=== PATIENT | male | born 1975 | race Caucasian/White ===

== ENCOUNTER 2020-06-18 02:43 | Inpatient (IN) | payer OTHER, SELFPAY ==
[2020-06-18] MEDS ORDERED: Morphine 4 MG/ML VIAL ONE (03:40)
[2020-06-18] MEDS ORDERED: Piperacillin/Tazobactam 4.5 GM VIAL ONE (03:40)
[2020-06-18] MEDS ORDERED: Ondansetron PF 4 MG/2 ML Vial ONE ×2 (03:40→09:47)
[2020-06-18 03:45] LABS: #Basophils 0.1 thou/uL (0.0-0.2); #Eosinphils 0.2 thou/uL (0.0-0.7); #Monocytes 1.4 thou/uL (0.11-0.59); #Neutrophils 12.7 thou/uL (1.40-6.50); %Basophils 0.4 % (0.0-1.0); %Eosinophils 1.3 % (0.0-10.0); %Lymphocytes 12.1 % (21.0-51.0); %Monocytes 8.4 % (0.0-10.0); %Neutrophils 77.8 % (42.0-75.0); Mean Corpuscular HGB CONC 34.2 g/dL (32.0-36.0); Mean Corpuscular Hemoglobin 30.2 pg (27.0-31.0); Mean Corpuscular Volume 88.4 fL (78.0-98.0); Platelet Count 267 thou/uL (130-400); RBC Distribution Width 11.1 % (11.5-14.5); Red Blood Cell (RBC) Count 4.31 mill/uL (4.70-6.10); White Blood Cell (WBC) Count 16.3 thou/uL (4.8-10.8)
[2020-06-18 04:07] LABS: ALT (SGPT) 7 U/L (8-55); AST (SGOT) 12 U/L (5-34); Albumin 3.5 g/dL (3.5-5.0); Alkaline Phosphatase 91 U/L (40-110); Anion Gap 13 mmol/L (10-20); BUN (Urea Nitrogen) 9 mg/dL (8.9-20.6); Bilirubin, Total 0.6 mg/dL (0.2-1.2); Calc. Creatinine Clearance 0 mL/min (70-130); Calcium 8.6 mg/dL (7.8-10.44); Carbon Dioxide 25 mmol/L (22-29); Chloride 96 mmol/L (98-107); Estimated GFR-MDRD 79; Globulin 3.6 g/dL (2.4-3.5); Glucose 375 mg/dL (70-105); Potassium 3.3 mmol/L (3.5-5.1); Protein, Total 7.1 g/dL (6.0-8.3); Sodium 131 mmol/L (136-145)
[2020-06-18 04:29] LABS: Bilirubin Negative (Negative); Blood, Urine Negative (Negative); Clarity Clear (Clear); Glucose, Urine (Dipstick) Greater than 1000 mg/dL (Negative); Ketone, Urine 20 mg/dL (Negative); Leukocyte Negative Leu/uL (Negative); Nitrite Negative (Negative); Protein, Urine (Dipstick) Negative (Neg-Trace); Specific Gravity, Urine 1.035 (1.002-1.036); Urobilinogen Normal mg/dL (Less than 2); pH, Urine 5.5 (5.0-9.0)
[2020-06-18] MEDS ORDERED: Vancomycin 1 GM/200 ML BAG ONE (04:36)
[2020-06-18] MEDS ORDERED: Clindamycin/D5W 600 mg/50 ml Premix Bag ONE ×2 (05:26→13:14)
[2020-06-18 06:18] VITALS: BMI 31.7
[2020-06-18] MEDS ORDERED: HumaLOG 300 UNITS/3 ML VIAL SC PRN (08:04)
[2020-06-18] MEDS ORDERED: Dextrose 50% Abboject 50 ML SYRINGE SLOW IVP PRN (08:04)
[2020-06-18] MEDS ORDERED: Dextrose 5% in Water 1,000 ML IV PRN (08:04)
[2020-06-18] MEDS ORDERED: Electrolyte Replacement Protocol FS PRN (08:15)
[2020-06-18] MEDS ORDERED: Electrolyte Replacement Protoc 1 EACH EACH FS SCH (08:15)
--- NOTE | 2020-06-18 08:20 | CON ---
DATE OF CONSULTATION: 06/18/2020 CHIEF COMPLAINT: Abdominal and scrotal pain. HISTORY OF PRESENT ILLNESS: This is a 44-year-old male with a history of pain that started in his infraumbilical area, radiating down toward his penis. He developed more swelling in his right scrotum that became swollen down into his testicle area associated with no fevers, chills, or body aches. He has never had this before. He is diabetic and he has had other abscesses in the past. He admitted to the hospitalist service. I was consulted for definitive drainage. PAST MEDICAL HISTORY: Includes type 2 diabetes. PAST SURGICAL HISTORY: Cholecystectomy. MEDICATIONS: Taken daily, metformin. ALLERGIES: NO KNOWN DRUG ALLERGIES. SOCIAL HISTORY: He does not smoke, but he admits to occasional drugs and social alcohol. FAMILY HISTORY: Noncontributory to GI malignancy or anesthetic related complication. REVIEW OF SYSTEMS: Ten-system review of systems is otherwise negative unless described above. PHYSICAL EXAMINATION: VITAL SIGNS: Blood pressure is 134/82, pulse 90, respirations 18. HEENT: Sclerae are anicteric. Oropharynx is clear. NECK: No lymphadenopathy. CHEST: Clear. HEART: Regular rate. ABDOMEN: Soft. GENITOURINARY: He has swelling in the right groin, suprapubic. He has severe pain in the area. He has mild swelling going down onto the scrotum. There is no obvious scrotal abscess. ASSESSMENT: Suprapubic abscess, likely with secondary inflammatory change going into the right scrotum. PLAN: I and D later today. Risks, benefits, and alternatives discussed. He gives consent. We will do this today. Job ID: [id number]
[2020-06-18] MEDS ORDERED: Acetaminophen 325 MG TAB PO PRN (09:10)
[2020-06-18] MEDS: HYDROcodone/Acetaminophen 5/325 mg Tablet PO PRN ×2 (09:14→18:49)
[2020-06-18] MEDS ORDERED: Dextrose 5 % And 0.9 % NaCl 1,000 ML IV SCH (09:15)
[2020-06-18 09:40] LABS: Hemoglobin A1c Greater than 14.0 % (4.0-6.0)
[2020-06-18] MEDS ORDERED: PROPOFOL 200 MG/20 ML VIAL ONE (09:47)
[2020-06-18] MEDS ORDERED: Lidocaine 1% PF 5 ML VIAL ONE (09:47)
[2020-06-18] MEDS ORDERED: Metoclopramide HCl 10 MG/2 ML VIAL ONE (09:47)
--- NOTE | 2020-06-18 10:03 | HP ---
PRESENTING COMPLAINT: Scrotal pain for 7 days. HISTORY OF PRESENT ILLNESS: This is a 44-year-old male patient with a history of diabetes mellitus for the past couple of years, not on insulin, however, on metformin, presenting with a 5 to 7 day history of scrotal swelling. Pain initially started on the left side and then migrated to the right side, and a couple of days ago, he noticed significant swelling and reddening of his scrotum and extended to his lower abdomen. He denied any associated fevers, dysuria, however, admits to scrotal and penile discharge. He did not do any interventions and when things got worse, he presented to the ED for further evaluation. 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 CT scan was positive for cellulitis involving the scrotum and lower abdominal wall. Surgery was consulted. Hospitalist team was consulted for admission. PAST MEDICAL HISTORY: Diabetes mellitus. MEDICATIONS: Metformin 500 mg b.i.d. ALLERGIES: NO KNOWN DRUG ALLERGIES. PAST SURGICAL HISTORY: Cholecystectomy. FAMILY HISTORY: Diabetes in mother. SOCIAL HISTORY: He lives alone. Next of kin is mother. He does not smoke. He drinks alcohol intermittently. PHYSICAL EXAMINATION: GENERAL: The patient in bed, in no acute distress. CVS: S1, S2 present and normal. No murmurs, gallops, or rubs. LUNGS: Clear bilaterally, no rhonchi or rales. ABDOMEN: Erythematous with swelling in lower abdominal wall with grossly swollen scrotum bilaterally with severe erythema. Extremities: No edema ASSESSMENT AND PLAN: -Scrotal abscess with abdominal wall cellulitis. Currently on Zosyn, clindamycin, and vancomycin. Surgery is consulted, plan is for incision and drainage this afternoon. Continue antibiotics and monitoring. -Diabetes mellitus. We will check A1c. We will start him on q.4 glucose monitoring and 5 units glargine. Follow up A1c, close monitoring. CODE STATUS: DNAR. Job ID: [id number] MTDD
[2020-06-18] MEDS: Piperacillin/Tazobactam 3.375 GM in Sodium Chloride 0.9% 100 ML IVPB SCH ×3 (10:29→22:15)
--- NOTE | 2020-06-18 10:31 | CT ---
PRELIMINARY REPORT/[facility]/EMERGENCY AFTER HOURS PROCEDURE EXAM: CT Pelvis Without Intravenous Contrast. CLINICAL HISTORY: 44-year-old male patient presents to the ER with complaint of scrotal pain, suprapubic abdominal pain , erythema, swelling, penile pain for the last 5 to 7 days. The patient states he first noticed redness and swelling in his lower abdomen which then started to spread to his scrotum 2 days ago. Pat ient denies any fever, body aches, chills, nausea, vomiting, or other symptoms at this time. The patient reports he is a diabetic. Patient denies any history of prior similar episodes in the past. TECHNIQUE: Axial computed tomography images of the pelvis without intravenous contrast. CONTRAST: None. COMPARISON: None provided. FINDINGS: HIP JOINTS: No dislocation. The joint spaces are normal. BONES: No acute fracture or focal osseous lesion. No suspicious focal osseous lesions. SOFT TISSUES: Extensive subcutaneous induration is noted extending from the lower margin of the pannus into the sub cutaneous tissues around the penis extending into the screening with bilateral hydroceles suspected. Some confluence of the presumed inflammatory changes extending from the skin surface to t he penis anteriorly likely a developing abscess although a discrete collection is not yet identified. There is no soft tissue air. Some prominent inguinal lymph nodes bilaterally which are presumably reactive. Contents of the pelvic cavity is unremarkable. 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 Early stages of this disease process however may be developing. ELECTRONICALLY SIGNED BY: Farshad Altamirano MD Jun 18, 2020 3:57:50 AM CDT This report is intended for review by the ordering physician only, in accordance of law. If you recei ve this report in error, please call [facility] at [phone]. FINAL REPORT Final report by Dr. Thurman Emergency after-hours study CT PELVIS WITHOUT CONTRAST: HISTORY: 44-year-old male with pain and swelling of the pelvis. FINDINGS: Severe scrotal edema and large bilateral hydroceles. Severe anterior superficial soft tissue edema, plus moderately large irregularly shaped soft tissue d ensity mass anterior to the base of the penis. Bilateral inguinal lymphadenopathy, with small irregularly-shaped soft tissue density mass around lef t inguinal lymph nodes. No subcutaneous emphysema identified. Unremarkable urinary bladder. No acute pathology identified within the pelvic cavity. No gross evidence of osteomyelitis. Agree with preliminary report by [facility]. IMPRESSION: 1.) Severe edema, which could be cellulitis anterior to the base of the penis and in the surrounding anterior superficial soft tissues. 2.) moderately large phlegmon vs hematoma anterior to base of penis, and smaller phlegmon versus usha farhan adjacent to left inguinal lymphadenopathy. 3) scrotal edema and hydroceles. Transcribed Date/Time: 06/18/2020 11:37 AM
[2020-06-18] MEDS ORDERED: HYDROcodone/Acetaminophen 5/325 mg Tablet PO SCH (10:45)
[2020-06-18] MEDS ORDERED: Potassium Chloride 40 MEQ in Sodium Chloride 0.9% 250 ML 250 ML IVPB SCH (12:45)
[2020-06-18] MEDS ORDERED: Sodium Chloride 0.9% 1,000 ML IV SCH (13:00)
[2020-06-18] MEDS ORDERED: Bupivacaine/Epinephrine 0.25% 30 ML VIAL ONE (13:05)
[2020-06-18] MEDS ORDERED: Bupivacaine 0.25% HCL 30 ML VIAL ONE (13:05)
[2020-06-18] MEDS ORDERED: Fentanyl 100 MCG/2 ML VIAL ONE (13:12)
[2020-06-18] MEDS ORDERED: FLU VACC QS2020-21(6MOS UP)/PF 60 MCG/0.5 ML SYRINGE IM ONE (13:15)
[2020-06-18] MEDS ORDERED: HYDROmorphone 2 MG/ML VIAL SLOW IVP PRN (13:49)
[2020-06-18] MEDS ORDERED: Promethazine HCl 25 MG/ML VIAL IM PRN (13:49)
[2020-06-18] MEDS ORDERED: Promethazine HCl 25 MG/ML VIAL SLOW IVP PRN (13:49)
--- NOTE | 2020-06-18 14:25 | OP ---
DATE OF PROCEDURE: 06/18/2020 PREOPERATIVE DIAGNOSIS: Suprapubic and scrotal abscess. POSTOPERATIVE DIAGNOSIS: Suprapubic and scrotal abscess. PROCEDURE PERFORMED: I and D of large suprapubic abscess. ANESTHESIA: General. ESTIMATED BLOOD LOSS: Minimal. COMPLICATIONS: None. SPECIMENS: Cultures taken for anaerobes and aerobes. DESCRIPTION OF PROCEDURE: The patient was taken to the operating room and laid supine on the operating room table. After general anesthetic was obtained, suprapubic area was prepped and draped in a sterile fashion. An elliptical incision used to ellipse out the tissue on top of the abscess. All loculations were broken up and the wound was irrigated. Cultures were taken. The wound was packed using wet-to-dry saline soaked gauze. There was a second small abscess below the umbilicus that was opened as well to reveal no purulence. This did not connect. There was no connection down into the scrotum. The scrotum was edematous, but there was no necrosis, bulla formation, or crepitance. The patient was sent to Recovery in stable condition. All instrument counts, needle counts, and lap counts were correct. Job ID: [id number]
[2020-06-18] MEDS: Clindamycin/D5W 600 MG in Premix Bag 1 BAG IVPB SCH ×2 (14:56→22:52)
[2020-06-18 15:26] LABS: SARS-CoV-2 MS2 Positive; SARS-CoV-2 N Gene Negative; SARS-CoV-2 S Gene Negative; SARS-CoV-2 by NAA Not Detected (NotDetected); SARS-CoV-2 orf1ab Negative
[2020-06-19] MEDS ORDERED: HumaLOG 300 UNITS/3 ML VIAL SC PRN (00:32)
[2020-06-19] MEDS: Piperacillin/Tazobactam 3.375 GM in Sodium Chloride 0.9% 100 ML IVPB SCH ×4 (03:07→21:08)
[2020-06-19 05:51] LABS: #Basophils 0.1 thou/uL (0.0-0.2); #Eosinphils 0.4 thou/uL (0.0-0.7); #Lymphocytes 2.4 thou/uL (1.20-3.40); #Monocytes 1.2 thou/uL (0.11-0.59); #Neutrophils 9.4 thou/uL (1.40-6.50); %Basophils 0.6 % (0.0-1.0); %Eosinophils 2.9 % (0.0-10.0); %Lymphocytes 17.9 % (21.0-51.0); %Monocytes 8.7 % (0.0-10.0); Hemoglobin 11.3 g/dL (14.0-18.0); Mean Corpuscular HGB CONC 33.1 g/dL (32.0-36.0); Mean Corpuscular Hemoglobin 30.5 pg (27.0-31.0); Mean Corpuscular Volume 92.1 fL (78.0-98.0); Platelet Count 234 thou/uL (130-400); RBC Distribution Width 11.1 % (11.5-14.5); Red Blood Cell (RBC) Count 3.71 mill/uL (4.70-6.10); White Blood Cell (WBC) Count 13.4 thou/uL (4.8-10.8)
[2020-06-19 06:17] LABS: Anion Gap 12 mmol/L (10-20); BUN (Urea Nitrogen) 8 mg/dL (8.9-20.6); Calc. Creatinine Clearance 215 mL/min (70-130); Calcium 7.9 mg/dL (7.8-10.44); Carbon Dioxide 22 mmol/L (22-29); Chloride 102 mmol/L (98-107); Estimated GFR-MDRD Greater than 90; Glucose 272 mg/dL (70-105); Potassium 3.6 mmol/L (3.5-5.1); Sodium 132 mmol/L (136-145)
[2020-06-19] MEDS: Clindamycin/D5W 600 MG in Premix Bag 1 BAG IVPB SCH ×3 (06:52→22:23)
[2020-06-19] MEDS: HYDROcodone/Acetaminophen 5/325 mg Tablet PO PRN ×3 (07:14→18:20)
--- NOTE | 2020-06-19 07:45 | PDOC.GSPN ---
Surgery Progress Note: Subj - Subjective Patient reports: feels better, pain well controlled (Pt. reports mild pain and s oreness) Narrative: Patient is a 44 year old male here status post day 1 I&D of a suprapubic abcess. He is currently receiving clindamycin, vacomycin, and Zosyn. Pt. denies any concerns with the wound, fever or chills, or shortness of breath. Surgery Progress Note: Obj - Vital signs Vital signs: Vital Signs - Most Recent Temp Pulse Resp BP Pulse Ox 98.5 F 69 18 111/73 97 06/19/20 03:00 06/19/20 03:00 06/19/20 03:00 06/19/20 03:00 06/19/20 03:00 - Physical Exam General: no distress, well developed, well nourished Cardiovascular: regular rate and rhythm Respiratory: clear to auscultation, normal expansion, normal respiratory effort, breath sounds present Abdomen: soft, non tender, nondistended, positive bowel sounds Wound: drainage (dressing consisted of drainage, consisiting of some blood and pus. There was not obvious drainage flowing outside of the dressing.) Surgery Progress Note: Results - Labs Result Diagrams: 06/19/20 05:32 06/19/20 05:32 Lab results: Laboratory Results - last 12 hr 06/18/20 06/19/20 06/19/20 20:06 00:19 04:36 WBC RBC Hgb Hct MCV MCH MCHC RDW Plt Count MPV Neutrophils % Lymphocytes % Monocytes % Eosinophils % Basophils % Neutrophils # Lymphocytes # Monocytes # Eosinophils # Basophils # Sodium Potassium Chloride Carbon Dioxide Anion Gap BUN Creatinine Estimated GFR (MDRD) Glucose POC Glucose 247 H 332 H 268 H Calcium 06/19/20 06/19/20 05:32 05:32 WBC 13.4 H RBC 3.71 L Hgb 11.3 L Hct 34.1 L MCV 92.1 MCH 30.5 MCHC 33.1 RDW 11.1 L Plt Count 234 MPV 9.0 Neutrophils % 70.0 Lymphocytes % 17.9 L Monocytes % 8.7 Eosinophils % 2.9 Basophils % 0.6 Neutrophils # 9.4 H Lymphocytes # 2.4 Monocytes # 1.2 H Eosinophils # 0.4 Basophils # 0.1 Sodium 132 L Potassium 3.6 Chloride 102 Carbon Dioxide 22 Anion Gap 12 BUN 8 L Creatinine 0.70 Estimated GFR (MDRD) Greater than 90 Glucose 272 H POC Glucose Calcium 7.9 Microbiology report shows gram positive cocci in pairs and clusters. Surgery Progress Note: A/P - Problem (1) Status post incision and drainage Current Visit: Yes Code(s): Z98.890 - OTHER SPECIFIED POSTPROCEDURAL STATES Status: Acute - Plan Plan: Continue wound care and pain treatment. Continue the course of clindamycin, vancomycin, and Zosyn. Patient should also ambulate as tolerable. Addendum - Physician - Physician Attestation Date/Time: 06/19/20 8632 I personally performed or re-performed the physical examination and medical decision making. I have verified all student documentation or findings, including history, physical exam and/or medical decision making. Agree, start dressing changes today. Scrotum still edematous but no bullae, crepitance or necrosis
--- NOTE | 2020-06-19 08:25 | PDOC.HOSPP ---
- Subjective Encounter Date: 06/19/20 Encounter Time: 08:24 Subjective: Patient seen and examined. No new complaints. No overnight events. POD#1 s/p I&D suprapubic and scrotal abscess. Denies any fever or chills. denies any nausea, vomiting or diarrhea. Denies any chest pain, or SOB. - Objective Vital Signs & Weight: Vital Signs (12 hours) Temp Pulse Resp BP Pulse Ox 06/19/20 07:00 97.8 F 70 18 106/68 70 L 06/19/20 03:00 98.5 F 69 18 111/73 97 06/19/20 00:00 98.9 F 93 18 103/64 95 06/18/20 22:18 93 Weight Weight 254 lb 1.6 oz I&O: 06/18/20 06/19/20 06/20/20 06:59 06:59 06:59 Intake Total 240 Balance 240 Result Diagrams: 06/19/20 05:32 06/19/20 05:32 Additional Labs: Accuchecks 06/19/20 06/19/20 06/18/20 04:36 00:19 20:06 POC Glucose 268 H 332 H 247 H 06/18/20 06/18/20 15:50 11:47 POC Glucose 188 H 232 H Hospitalist ROS - Review of Systems Constitutional: denies: fever, chills Respiratory: denies: cough, shortness of breath Cardiovascular: denies: chest pain, palpitations Gastrointestinal: denies: nausea, vomiting, diarrhea Genitourinary: denies: dysuria, hematuria Neurological: denies: incoordination, change in speech All other systems reviewed; all pertinent +/- noted in HPI/Subj - Medication Medications: Active Medications Generic Name Dose Route Start Last Admin Trade Name Freq PRN Reason Stop Dose Admin Hydrocodone Bitart/Acetaminophen 1 tab 06/18/20 09:08 06/19/20 07:14 Hydrocodone/Acetaminophen 5/325 Mg Tablet PO 1 tab Q4H PRN Administration Mild-Moderate Pain (1-5) Piperacillin Sod/Tazobactam 100 mls @ 200 mls/hr 06/18/20 09:00 06/19/20 03:07 Sod 3.375 gm/ Sodium Chloride IVPB 100 mls 0300,0900,1500,2100 LEATHA Administration Clindamycin Phosphate/Dextrose 50 mls @ 100 mls/hr 06/18/20 14:00 06/19/20 06:52 600 mg/ Device IVPB 50 mls Q8HR LEATHA Administration Vancomycin HCl 2 gm/ Sodium 500 mls @ 250 mls/hr 06/18/20 17:00 06/19/20 04:29 Chloride IVPB 06/24/20 11:00 500 mls 0500,1700 LEATHA Administration - Exam General Appearance: NAD, awake alert Eye: anicteric sclera ENT: normocephalic atraumatic Neck: supple, symmetric Heart: RRR, no murmur, no gallops, no rubs, normal peripheral pulses Respiratory: CTAB, no wheezes, no rales, no ronchi, normal chest expansion, no tachypnea Gastrointestinal: soft, normal bowel sounds, no guarding, no rigidity Extremities: no cyanosis, no edema Skin - other findings: wound drsg to left groin area and scrotum, WCT managing. Neurological: no focal deficits Psychiatric: normal affect, A&O x 3 Hosp A/P (1) Sepsis due to Escherichia coli with acute hypoxic respiratory failure Code(s): A41.51 - SEPSIS DUE TO ESCHERICHIA COLI [E. COLI]; R65.20 - SEVERE SEPSIS WITHOUT SEPTIC SHOCK; J96.01 - ACUTE RESPIRATORY FAILURE WITH HYPOXIA Status: Acute (2) Scrotal abscess Code(s): N49.2 - INFLAMMATORY DISORDERS OF SCROTUM Status: Acute (3) Sepsis Code(s): A41.9 - SEPSIS, UNSPECIFIED ORGANISM Status: Acute (4) Cellulitis, scrotum Code(s): N49.2 - INFLAMMATORY DISORDERS OF SCROTUM Status: Acute (5) Abdominal wall cellulitis Code(s): L03.311 - CELLULITIS OF ABDOMINAL WALL Status: Acute (6) DMII (diabetes mellitus, type 2) Status: Chronic Qualifiers: Diabetes mellitus penitentiary insulin use: without penitentiary use - Plan #Sepsis d/t Ecoli with hypoxic respiratory failure VSS Blood CX negative so far. Wound CX anaerobes. WBC down 13.4, LA 1.3 POD#1 s/p I&D suprapubic and scrotal abscess by Dr. Goodson Continue Vanc, Zosyn and Clindamycin Tolerating oral intake. Wound care Consulted. #Sepsis see above. #Cellulitis Scrotum POD#1 s/p I&D suprapubic and scrotal absces. # Abdominal wall cellulitis Continue antibiotic regimen. #DMII, uncontrolled HA1C 14 Has not been taking home metformin and flozin. Tolerating oral intake. Increase lantus to 10u q am. (was 5u) Change to Mod ISS AC/HS checks. Other chronic conditions per H&P. Discussed case with Dr. Yarbrough.
[2020-06-19] MEDS ORDERED: Insulin Glargine 5 UNITS in Pre-Filled Syringe 1 EACH SC SCH (09:00)
[2020-06-19] MEDS: Insulin Glargine 10 UNITS in Pre-Filled Syringe 1 EACH SC SCH (10:09)
[2020-06-19] MEDS: Vancomycin 1.5 GRAM/300 ML BAG 1.5 GM in Premix Bag 1 BAG IVPB SCH (18:20)
[2020-06-19] MEDS: HumaLOG 300 UNITS/3 ML VIAL SC PRN ×2 (18:22→21:10)
[2020-06-19 22:12] LABS: Chlam.trachomatis by PCR,Urine Not Detected (NotDetected)
[2020-06-20] MEDS: Vancomycin 1.5 GRAM/300 ML BAG 1.5 GM in Premix Bag 1 BAG IVPB SCH ×3 (01:02→16:45)
[2020-06-20] MEDS: Piperacillin/Tazobactam 3.375 GM in Sodium Chloride 0.9% 100 ML IVPB SCH ×4 (03:04→20:33)
[2020-06-20] MEDS: Clindamycin/D5W 600 MG in Premix Bag 1 BAG IVPB SCH ×3 (06:27→22:01)
[2020-06-20] MEDS: HumaLOG 300 UNITS/3 ML VIAL SC PRN ×4 (06:30→20:35)
[2020-06-20] MEDS ORDERED: Magnesium 2 GM/50 ML 2 GM in Premix Bag 1 BAG IVPB SCH (08:00)
[2020-06-20] MEDS: Insulin Glargine 10 UNITS in Pre-Filled Syringe 1 EACH SC SCH (08:36)
[2020-06-20] MEDS ORDERED: Piperacillin/Tazobactam 3.375 GM VIAL ONE ×2 (08:41→15:00)
[2020-06-20 09:19] LABS: #Eosinphils 0.5 thou/uL (0.0-0.7); #Lymphocytes 1.6 thou/uL (1.20-3.40); #Monocytes 0.7 thou/uL (0.11-0.59); #Neutrophils 5.4 thou/uL (1.40-6.50); %Basophils 0.6 % (0.0-1.0); %Eosinophils 6.5 % (0.0-10.0); %Lymphocytes 18.9 % (21.0-51.0); %Monocytes 8.3 % (0.0-10.0); %Neutrophils 65.7 % (42.0-75.0); Hemoglobin 11.8 g/dL (14.0-18.0); Mean Corpuscular HGB CONC 32.6 g/dL (32.0-36.0); Mean Platelet Volume 8.6 fL (7.4-10.4); Platelet Count 266 thou/uL (130-400); RBC Distribution Width 11.2 % (11.5-14.5); Red Blood Cell (RBC) Count 3.93 mill/uL (4.70-6.10); White Blood Cell (WBC) Count 8.2 thou/uL (4.8-10.8)
[2020-06-20 09:39] LABS: Anion Gap 13 mmol/L (10-20); BUN (Urea Nitrogen) 5 mg/dL (8.9-20.6); Calc. Creatinine Clearance 228 mL/min (70-130); Calcium 8.6 mg/dL (7.8-10.44); Carbon Dioxide 24 mmol/L (22-29); Chloride 103 mmol/L (98-107); Estimated GFR-MDRD Greater than 90; Glucose 211 mg/dL (70-105); Potassium 4.2 mmol/L (3.5-5.1); Sodium 136 mmol/L (136-145)
--- NOTE | 2020-06-20 10:13 | PDOC.HOSPP ---
- Subjective Encounter Date: 06/20/20 Encounter Time: 10:11 Subjective: No overnight events. Pt POD#2 from scrotal abcess I&D. Pt reports he overall feels well. Pain is improving as is scrotal edema. Denies numbnes/weakness. Denies chest pain, SOB, abdominal pain. Pt examined at bedside. Chart and medications reviewed. - Objective Vital Signs & Weight: Vital Signs (12 hours) Temp Pulse Resp BP Pulse Ox 06/20/20 07:26 98.1 F 87 20 148/92 H 988 H Weight Weight 254 lb 1.6 oz I&O: 06/19/20 06/20/20 06/21/20 06:59 06:59 06:59 Intake Total 240 Balance 240 Result Diagrams: 06/20/20 08:55 06/20/20 08:55 Additional Labs: Accuchecks 06/20/20 06/19/20 06/19/20 04:52 20:30 10:46 POC Glucose 168 H 220 H 242 H Hospitalist ROS - Review of Systems Constitutional: denies: fever, chills, sweats, weakness, malaise, other Eyes: denies: vision change Respiratory: denies: cough, shortness of breath Cardiovascular: denies: chest pain, palpitations Gastrointestinal: denies: nausea, vomiting, abdominal pain, diarrhea Genitourinary: denies: dysuria Skin: reports: rash Neurological: denies: weakness, numbness - Medication Medications: Active Medications Generic Name Dose Route Start Last Admin Trade Name Freq PRN Reason Stop Dose Admin Hydrocodone Bitart/Acetaminophen 1 tab 06/18/20 09:08 06/19/20 18:20 Hydrocodone/Acetaminophen 5/325 Mg Tablet PO 1 tab Q4H PRN Administration Mild-Moderate Pain (1-5) Piperacillin Sod/Tazobactam 100 mls @ 200 mls/hr 06/18/20 09:00 06/20/20 08:44 Sod 3.375 gm/ Sodium Chloride IVPB 100 mls 0300,0900,1500,2100 LEATHA Administration Clindamycin Phosphate/Dextrose 50 mls @ 100 mls/hr 06/18/20 14:00 06/20/20 06:27 600 mg/ Device IVPB 50 mls Q8HR LEATHA Administration Insulin Glargine 10 units/ 0.1 mls @ 0 mls/hr 06/19/20 09:00 06/20/20 08:36 Miscellaneous Medication SC 0.1 mls QAM LEATHA Administration As Directed Vancomycin HCl 1.5 gm/ Device 300 mls @ 200 mls/hr 06/19/20 17:00 06/20/20 01:02 IVPB 300 mls 0100,0900,1700 LEATHA Administration Magnesium Sulfate 2 gm/ Device 50 mls @ 100 mls/hr 06/20/20 08:00 06/20/20 09:23 IVPB 06/20/20 11:00 50 mls NOW LEATHA Administration Insulin Human Lispro 0 units 06/19/20 08:18 06/20/20 06:30 Humalog 300 Units/3 Ml Vial SC 2 unit .MODERATE SLIDING SC PRN Administration Moderate Correctional Scale Insulin Human Lispro 0 units 06/19/20 08:18 06/19/20 21:10 Humalog 300 Units/3 Ml Vial SC 2 unit .BEDTIME SLIDING SC PRN Administration Bedtime Correctional Scale Sodium Chloride 10 ml 06/20/20 09:00 06/20/20 08:37 Flush - Normal Saline 10 Ml Syringe IVF Not Given Q12HR LEATHA - Exam General Appearance: NAD, awake alert Eye: anicteric sclera ENT: normocephalic atraumatic, moist mucosa Neck: symmetric, no JVD Heart: RRR, no murmur, no gallops, no rubs, normal peripheral pulses Respiratory: CTAB, no wheezes, no rales, no ronchi, normal chest expansion, no tachypnea, normal percussion Gastrointestinal: soft, non-tender, non-distended, normal bowel sounds, no palpable masses, no hepatomegaly, no splenomegaly, no bruit Skin - other findings: Erythema/edema to scrotum. Dressing in place. No crepitus, bullae, or necro Neurological: no weakness, no focal deficits Musculoskeletal: normal tone, normal strength Psychiatric: normal affect, normal behavior, A&O x 3 Hosp A/P - Plan Sepsis without septic shock VSS Blood cx show MRSA preliminary. Wound CX anaerobes still pending. WBC down 13.4 to 8.2, LA 1.3, afebrile POD#2 s/p I&D suprapubic and scrotal abscess by Dr. Parrent Continue Vanc, Zosyn and Clindamycin Tolerating oral intake. Wound care Consulted. Scrotal Abccess POD#2 s/p I&D suprapubic and scrotal abscess. Continue vanc, zosyn, clindamycin. Daily dressing changes per surgical team. Abdominal wall cellulitis Continue antibiotic regimen. DMII, uncontrolled HA1C 14 Has not been taking home metformin and empaglaflozin. Tolerating oral intake. Increase lantus to 10u qam Mod ISS AC/HS checks. Case discussed with attending physician, Dr. Yarbrough.
[2020-06-20] MEDS: Morphine 2 MG/ML VIAL SLOW IVP PRN ×2 (10:18→20:38)
[2020-06-20] MEDS: HYDROcodone/Acetaminophen 5/325 mg Tablet PO PRN (12:16)
[2020-06-20 16:27] LABS: Vancomycin, Trough 18.7 ug/mL
[2020-06-21] MEDS: Vancomycin 1.5 GRAM/300 ML BAG 1.5 GM in Premix Bag 1 BAG IVPB SCH ×3 (00:19→19:05)
[2020-06-21] MEDS: Piperacillin/Tazobactam 3.375 GM in Sodium Chloride 0.9% 100 ML IVPB SCH ×4 (03:30→21:05)
[2020-06-21] MEDS: Clindamycin/D5W 600 MG in Premix Bag 1 BAG IVPB SCH ×3 (06:22→21:05)
[2020-06-21 06:49] LABS: Cardiac Risk 7.8 (Less than 4.5)
--- NOTE | 2020-06-21 08:06 | PRG ---
DATE OF SERVICE: 06/21/2020 SUBJECTIVE: Mr. Nuñez is complaining of pain below his other incision. He had severe pain with dressing change yesterday. OBJECTIVE: He has a second fluctuant wound in the suprapubic location. LABORATORY DATA: White blood cell count is 8, hemoglobin 11. Sodium 136, potassium 4.2, creatinine 0.66. ASSESSMENT: Ongoing perineal infection, although the scrotum appears viable. PLAN: We will put him back on the schedule for I and D later by Rodrigo. Job ID: [id number]
[2020-06-21] MEDS ORDERED: Insulin Glargine 10 UNITS in Pre-Filled Syringe 1 EACH SC SCH ×2 (09:00→09:15)
[2020-06-21] MEDS ORDERED: Insulin Glargine 14 UNITS in Pre-Filled Syringe 1 EACH SC SCH (09:00)
[2020-06-21] MEDS ORDERED: PROPOFOL 200 MG/20 ML VIAL ONE (09:37)
[2020-06-21] MEDS ORDERED: Lidocaine 1% PF 5 ML VIAL ONE (09:37)
[2020-06-21] MEDS ORDERED: Ondansetron PF 4 MG/2 ML Vial ONE (09:37)
[2020-06-21] MEDS ORDERED: Ketorolac Tromethamine 30 MG/ML VIAL ONE (09:37)
--- NOTE | 2020-06-21 09:51 | PDOC.HOSPP ---
- Subjective Encounter Date: 06/21/20 Encounter Time: 09:49 Subjective: No overnight events. Patient states he overall feels well. Endorses mild to moderate pain to scrotum. Denies chest pain, shortness of breath, abdominal pain. Denies numbness or paresthesias. Chart and medications reviewed. - Objective Vital Signs & Weight: Vital Signs (12 hours) Temp Pulse Resp BP Pulse Ox 06/21/20 08:01 97 06/21/20 07:39 98.2 F 65 20 131/86 97 06/21/20 03:00 98.1 F 71 18 131/85 99 Weight Admit Weight 254 lb 1.6 oz Weight 254 lb 1.6 oz I&O: 06/20/20 06/21/20 06/22/20 06:59 06:59 06:59 Intake Total 3300 Balance 3300 Result Diagrams: 06/20/20 08:55 06/20/20 08:55 Additional Labs: Accuchecks 06/21/20 06/21/20 06/20/20 09:09 04:14 20:38 POC Glucose 197 H 181 H 202 H 06/20/20 06/20/20 06/19/20 15:34 11:17 15:23 POC Glucose 233 H 247 H 279 H Hospitalist ROS - Review of Systems Constitutional: denies: fever, chills, sweats Eyes: denies: vision change Respiratory: denies: cough, dry, shortness of breath, hemoptysis, SOB with excertion, pleuritic pain, sputum, wheezing, other Cardiovascular: denies: chest pain, palpitations Gastrointestinal: denies: nausea, vomiting, abdominal pain, diarrhea Genitourinary: denies: dysuria Musculoskeletal: reports: neck pain Skin: denies: rash Neurological: denies: weakness, numbness - Medication Medications: Active Medications Generic Name Dose Route Start Last Admin Trade Name Freq PRN Reason Stop Dose Admin Hydrocodone Bitart/Acetaminophen 1 tab 06/18/20 09:08 06/20/20 12:16 Hydrocodone/Acetaminophen 5/325 Mg Tablet PO 1 tab Q4H PRN Administration Mild-Moderate Pain (1-5) Piperacillin Sod/Tazobactam 100 mls @ 200 mls/hr 06/18/20 09:00 06/21/20 09:01 Sod 3.375 gm/ Sodium Chloride IVPB 100 mls 0300,0900,1500,2100 LEATHA Administration Clindamycin Phosphate/Dextrose 50 mls @ 100 mls/hr 06/18/20 14:00 06/21/20 06:22 600 mg/ Device IVPB 50 mls Q8HR LEATHA Administration Vancomycin HCl 1.5 gm/ Device 300 mls @ 200 mls/hr 06/19/20 17:00 06/21/20 00:19 IVPB 300 mls 0100,0900,1700 LEATHA Administration Insulin Human Lispro 0 units 06/19/20 08:18 06/20/20 16:46 Humalog 300 Units/3 Ml Vial SC 4 unit .MODERATE SLIDING SC PRN Administration Moderate Correctional Scale Insulin Human Lispro 0 units 06/19/20 08:18 06/20/20 20:35 Humalog 300 Units/3 Ml Vial SC 2 unit .BEDTIME SLIDING SC PRN Administration Bedtime Correctional Scale Morphine Sulfate 2 mg 06/18/20 13:50 06/20/20 20:38 Morphine 2 Mg/Ml Vial SLOW IVP 2 mg Q2H PRN Administration Mild-Moderate Pain (1-5) Sodium Chloride 10 ml 06/20/20 09:00 06/21/20 09:04 Flush - Normal Saline 10 Ml Syringe IVF Not Given Q12HR LEATHA - Exam General Appearance: NAD, awake alert Eye: anicteric sclera ENT: normocephalic atraumatic, no oropharyngeal lesions, moist mucosa Neck: supple, symmetric, no JVD, no thyromegaly, no lymphadenopathy, no carotid bruit Heart: RRR, no murmur, no gallops, no rubs, normal peripheral pulses Respiratory: CTAB, no wheezes, no rales, no ronchi, normal chest expansion, no tachypnea, normal percussion Gastrointestinal: soft, non-tender, non-distended, normal bowel sounds, no palpable masses, no hepatomegaly, no splenomegaly, no bruit Extremities - other findings: Scrotal edema with draining abscess Neurological: normal sensation to touch, no weakness, no focal deficits, no new deficit Musculoskeletal: normal tone Psychiatric: normal affect, normal behavior, A&O x 3 Hosp A/P - Plan Sepsis without septic shock VSS Blood cx show MRSA preliminary. Wound CX anaerobes still pending. WBC down 13.4 to 8.2, LA 1.3, afebrile POD#3 s/p I&D suprapubic and scrotal abscess by Dr. Goodson Continue Vanc, Zosyn and Clindamycin Tolerating oral intake. Wound care Consulted. Scrotal Abccess POD#2 s/p I&D suprapubic and scrotal abscess. Continue vanc, zosyn, clindamycin. Daily dressing changes per surgical team. Surgical team will take patient today for repeat I&D. Abdominal wall cellulitis Continue antibiotic regimen. DMII, uncontrolled HA1C 14 Has not been taking home metformin and empaglaflozin. Tolerating oral intake. Blood sugars overnight in the 200s, will increase Lantus to 14 units starting tomorrow, as patient will be n.p.o. prior to surgery this morning. Mod ISS AC/HS checks. Case discussed with attending physician, Dr. Yarbrough.
[2020-06-21] MEDS: Morphine 2 MG/ML VIAL SLOW IVP PRN (10:12)
[2020-06-21] MEDS ORDERED: Clindamycin/D5W 600 mg/50 ml Premix Bag ONE (14:43)
[2020-06-21] MEDS ORDERED: Piperacillin/Tazobactam 3.375 GM VIAL ONE (16:02)
[2020-06-21] MEDS ORDERED: Sodium Chloride 0.9% 100 ML ONE (16:02)
[2020-06-21 16:55] LABS: Vancomycin, Trough 18.6 ug/mL
[2020-06-21] MEDS ORDERED: traMADol HCl 50 MG TAB PO PRN ×2 (17:33)
[2020-06-21] MEDS ORDERED: Acetaminophen 500 MG TAB PO PRN (17:33)
[2020-06-21] MEDS ORDERED: Fentanyl 100 MCG/2 ML VIAL ONE ×2 (17:34→18:33)
[2020-06-21] MEDS ORDERED: Bupivacaine HCl 0.5%/Epinephrine 1:200,000/PF 30 ml Vial ONE (18:05)
[2020-06-21] MEDS ORDERED: Promethazine HCl 25 MG/ML VIAL IM PRN (18:07)
[2020-06-21] MEDS ORDERED: Ondansetron HCl/PF 4 MG/2 ML Vial IVP PRN (18:07)
[2020-06-21] MEDS ORDERED: Promethazine HCl 25 MG/ML VIAL SLOW IVP PRN (18:07)
--- NOTE | 2020-06-21 23:04 | OP ---
DATE OF PROCEDURE: 06/21/2020 PREOPERATIVE DIAGNOSES: Morbid obesity, diabetes, multiple abscesses, left groin, pubis, and supra-penile. POSTOPERATIVE DIAGNOSES: Morbid obesity, diabetes, multiple abscesses, left groin, pubis, and supra-penile. PROCEDURE PERFORMED: Incision and drainage of left upper pubis abscess, which had been previously drained, extending inferolateral. Drainage of another supra-penile abscess extending cephalad; extension of previously drained abscess opening, midline pubis, extending to the right of midline. ANESTHESIA: General, local 0.5% Marcaine with epinephrine 30 mL. DESCRIPTION OF PROCEDURE: The patient was taken to the operating room where under general anesthesia, his lower abdomen, pubis, penis, and groin were prepared with Betadine and draped in routine fashion. The patient had previous drainage of an abscess with Dr. Goodson. He had developed another abscess above his penis. Exploration of the wound revealed extension of the left pubis abscess laterally and the midline pubis. These both were extended opening unroofing the cavity and tracked over. Hemostasis gained with cautery. The supra-penile soft tissue abscess just above the penis midline was drained, extended cephalad, unroofed, excised necrotic skin, and thinned out the skin. Hemostasis was gained with cautery. Wound packed open. The patient tolerated the procedure well. Job ID: [id number]
[2020-06-22] MEDS: Vancomycin 1.5 GRAM/300 ML BAG 1.5 GM in Premix Bag 1 BAG IVPB SCH ×3 (00:52→18:54)
[2020-06-22] MEDS: Piperacillin/Tazobactam 3.375 GM in Sodium Chloride 0.9% 100 ML IVPB SCH ×2 (04:00→08:39)
[2020-06-22] MEDS: Morphine 4 MG/ML VIAL SLOW IVP PRN ×2 (05:22→11:14)
[2020-06-22] MEDS: Clindamycin/D5W 600 MG in Premix Bag 1 BAG IVPB SCH (05:23)
[2020-06-22 06:29] LABS: #Basophils 0.1 thou/uL (0.0-0.2); #Eosinphils 0.4 thou/uL (0.0-0.7); #Lymphocytes 1.6 thou/uL (1.20-3.40); #Monocytes 0.8 thou/uL (0.11-0.59); #Neutrophils 4.3 thou/uL (1.40-6.50); %Eosinophils 6.1 % (0.0-10.0); %Lymphocytes 22.4 % (21.0-51.0); %Monocytes 10.7 % (0.0-10.0); %Neutrophils 59.8 % (42.0-75.0); Hemoglobin 11.3 g/dL (14.0-18.0); Mean Corpuscular Hemoglobin 29.8 pg (27.0-31.0); Mean Platelet Volume 8.5 fL (7.4-10.4); Platelet Count 298 thou/uL (130-400); RBC Distribution Width 11.4 % (11.5-14.5); Red Blood Cell (RBC) Count 3.81 mill/uL (4.70-6.10); White Blood Cell (WBC) Count 7.1 thou/uL (4.8-10.8)
[2020-06-22 06:50] LABS: Anion Gap 9 mmol/L (10-20); BUN (Urea Nitrogen) 7 mg/dL (8.9-20.6); Calc. Creatinine Clearance 228 mL/min (70-130); Calcium 8.3 mg/dL (7.8-10.44); Carbon Dioxide 23 mmol/L (22-29); Chloride 106 mmol/L (98-107); Estimated GFR-MDRD Greater than 90; Glucose 212 mg/dL (70-105); Potassium 4.1 mmol/L (3.5-5.1); Sodium 134 mmol/L (136-145)
--- NOTE | 2020-06-22 08:34 | PDOC.HOSPP ---
- Subjective Encounter Date: 06/22/20 Encounter Time: 08:32 Subjective: Patient taken to the OR yesterday for repeat I&D of suprapenile abscess by Dr. Wallace. Patient doing well this morning with no chest pain, SOB, or abdominal pain. Reports pain is moderate, but tolerable. Endorses severe pain with dressing changes. No bowel movement, but is passing flatus. Chart and medications reviewed. - Objective Vital Signs & Weight: Vital Signs (12 hours) Temp Pulse Resp BP BP Pulse Ox 06/22/20 07:56 97.9 F 61 15 142/87 H 97 06/22/20 04:00 97.8 F 66 18 135/88 96 06/22/20 00:00 58 L 18 119/71 99 06/21/20 21:50 60 145/92 H 06/21/20 21:25 58 L 140/90 06/21/20 20:55 51 L 145/91 H Weight Admit Weight 254 lb 1.6 oz Weight 254 lb 1.6 oz I&O: 06/21/20 06/22/20 06/23/20 06:59 06:59 06:59 Intake Total 3300 Balance 3300 Result Diagrams: 06/22/20 06:07 06/22/20 06:07 Additional Labs: Accuchecks 06/21/20 06/21/20 06/21/20 19:58 16:17 11:18 POC Glucose 158 H 137 H 173 H 06/21/20 09:09 POC Glucose 197 H Hospitalist ROS - Review of Systems Constitutional: denies: fever, chills, sweats, weakness, malaise, other Eyes: denies: vision change Respiratory: denies: cough, shortness of breath Cardiovascular: denies: chest pain, palpitations, light headedness Gastrointestinal: reports: constipation. denies: nausea, vomiting, abdominal pain, diarrhea Genitourinary: reports: other (moderate to severe scrotal pain). denies: dysuria Musculoskeletal: denies: neck pain, shoulder pain, arm pain, back pain, hand pain, leg pain, foot pain, other Skin: reports: lesions Neurological: denies: weakness, numbness, incoordination, change in speech, confusion, seizures, other - Medication Medications: Active Medications Generic Name Dose Route Start Last Admin Trade Name Freq PRN Reason Stop Dose Admin Hydrocodone Bitart/Acetaminophen 1 tab 06/18/20 09:08 06/20/20 12:16 Hydrocodone/Acetaminophen 5/325 Mg Tablet PO 1 tab Q4H PRN Administration Mild-Moderate Pain (1-5) Piperacillin Sod/Tazobactam 100 mls @ 200 mls/hr 06/18/20 09:00 06/22/20 04:00 Sod 3.375 gm/ Sodium Chloride IVPB 100 mls 0300,0900,1500,2100 LEATHA Administration Clindamycin Phosphate/Dextrose 50 mls @ 100 mls/hr 06/18/20 14:00 06/22/20 05:23 600 mg/ Device IVPB 50 mls Q8HR LEATHA Administration Vancomycin HCl 1.5 gm/ Device 300 mls @ 200 mls/hr 06/19/20 17:00 06/22/20 00:52 IVPB 300 mls 0100,0900,1700 LEATHA Administration Insulin Human Lispro 0 units 06/19/20 08:18 06/20/20 16:46 Humalog 300 Units/3 Ml Vial SC 4 unit .MODERATE SLIDING SC PRN Administration Moderate Correctional Scale Insulin Human Lispro 0 units 06/19/20 08:18 06/20/20 20:35 Humalog 300 Units/3 Ml Vial SC 2 unit .BEDTIME SLIDING SC PRN Administration Bedtime Correctional Scale Morphine Sulfate 2 mg 06/18/20 13:50 06/21/20 10:12 Morphine 2 Mg/Ml Vial SLOW IVP 2 mg Q2H PRN Administration Mild-Moderate Pain (1-5) Morphine Sulfate 4 mg 06/18/20 13:50 06/22/20 05:22 Morphine 4 Mg/Ml Vial SLOW IVP 4 mg Q2H PRN Administration Moderate to Severe Pain (6-10) Sodium Chloride 10 ml 06/20/20 09:00 06/21/20 21:05 Flush - Normal Saline 10 Ml Syringe IVF 10 ml Q12HR LEATHA Administration - Exam General Appearance: NAD, awake alert Eye: anicteric sclera ENT: normocephalic atraumatic, moist mucosa Neck: supple, symmetric, no JVD Heart: RRR, no murmur, no gallops, no rubs, normal peripheral pulses Respiratory: CTAB, no wheezes, no rales, no ronchi, normal chest expansion, no tachypnea, normal percussion Gastrointestinal: soft, non-tender, non-distended, normal bowel sounds, no palpable masses, no hepatomegaly, no splenomegaly, no bruit Extremities: no cyanosis, no clubbing, no edema Skin - other findings: Scrotal edema and erythema, draining suprabuic abscess with dressing in racheal Neurological: normal sensation to touch, no weakness, no focal deficits, no new deficit Musculoskeletal: normal tone, normal strength, no muscle wasting Psychiatric: normal affect, normal behavior, A&O x 3 Hosp A/P - Plan Sepsis without septic shock VSS Blood cx NGTD, Wound cx show MRSA, no anearobes. Will deescalate to IV vancomycin only WBC down 13.4 to 7.1, LA 1.3, afebrile Deescalate abx to IV vancomycin Tolerating oral intake. Wound care Consulted. Scrotal Abccess POD#4 s/p I&D suprapubic and scrotal abscess by Dr. Goodson POD#1 s/p repeat I&D suprapubic and scrotal abscess by Dr. Wallace Daily dressing changes per surgical team. Pain medication with dressing changes. Surgical team following. Abdominal wall cellulitis Continue antibiotic regimen. Abdominal wall cellulitis improved with erythema and edema localized to suprapubic area. DMII, uncontrolled HA1C 14 Has not been taking home metformin and empaglaflozin. Tolerating oral intake. Blood sugars high in the 200s, will increase Lantus to 14 units Mod ISS AC/HS checks. Case discussed with attending physician, Dr. Yarbrough.
[2020-06-22] MEDS: Insulin Glargine 14 UNITS in Pre-Filled Syringe 1 EACH SC SCH (08:39)
[2020-06-22] MEDS: HYDROcodone/Acetaminophen 5/325 mg Tablet PO PRN ×2 (08:48→20:37)
[2020-06-22] MEDS ORDERED: Morphine 2 MG/ML VIAL SLOW IVP SCH (12:15)
[2020-06-22] MEDS: HumaLOG 300 UNITS/3 ML VIAL SC PRN ×3 (13:15→20:36)
[2020-06-22 16:44] LABS: Calc. Creatinine Clearance 239 mL/min (70-130); Estimated GFR-MDRD Greater than 90
--- NOTE | 2020-06-22 19:02 | PRG ---
DATE OF SERVICE: Erick Nuñez is doing well today. Wound Care changes dressing, they applied wound VAC. patient registration manager will need to work out outpatient wound care. Patient is a welder machine operator. He does not have any insurance. He is using meth, both injection and inhalational. He has ceased using meth in the past, but has had a relapse. He wants to quit. He states he will do this on his own and refuses any kind of help as far as rehab. Patient is stable for discharge home whenever outpatient wound care is arranged. Dr. Goodosn can see him in followup in the next few weeks. Outpatient Wound Care can follow him. Job ID: [id number]
[2020-06-22 19:03] LABS: Vancomycin, Trough 18.6 ug/mL
[2020-06-22] MEDS: Enoxaparin Sodium 40 MG/0.4 ML SYRINGE SC SCH (20:36)
[2020-06-23] MEDS: Vancomycin 1.5 GRAM/300 ML BAG 1.5 GM in Premix Bag 1 BAG IVPB SCH ×3 (03:00→19:57)
[2020-06-23] MEDS: HumaLOG 300 UNITS/3 ML VIAL SC PRN ×3 (05:03→17:57)
[2020-06-23 07:54] LABS: #Basophils 0.1 thou/uL (0.0-0.2); #Eosinphils 0.4 thou/uL (0.0-0.7); #Lymphocytes 1.8 thou/uL (1.20-3.40); #Monocytes 0.8 thou/uL (0.11-0.59); #Neutrophils 4.8 thou/uL (1.40-6.50); %Basophils 1.4 % (0.0-1.0); %Eosinophils 5.1 % (0.0-10.0); %Lymphocytes 22.8 % (21.0-51.0); %Monocytes 9.9 % (0.0-10.0); %Neutrophils 60.8 % (42.0-75.0); Mean Corpuscular HGB CONC 32.4 g/dL (32.0-36.0); Mean Corpuscular Hemoglobin 29.4 pg (27.0-31.0); Mean Corpuscular Volume 90.8 fL (78.0-98.0); Mean Platelet Volume 8.3 fL (7.4-10.4); Platelet Count 323 thou/uL (130-400); RBC Distribution Width 11.5 % (11.5-14.5); Red Blood Cell (RBC) Count 4.06 mill/uL (4.70-6.10)
[2020-06-23 08:14] LABS: Anion Gap 12 mmol/L (10-20); BUN (Urea Nitrogen) 7 mg/dL (8.9-20.6); Calc. Creatinine Clearance 225 mL/min (70-130); Calcium 8.8 mg/dL (7.8-10.44); Carbon Dioxide 25 mmol/L (22-29); Chloride 105 mmol/L (98-107); Estimated GFR-MDRD Greater than 90; Glucose 155 mg/dL (70-105); Potassium 4.1 mmol/L (3.5-5.1); Sodium 138 mmol/L (136-145)
[2020-06-23] MEDS: Insulin Glargine 14 UNITS in Pre-Filled Syringe 1 EACH SC SCH (08:45)
[2020-06-23] MEDS ORDERED: Senokot 8.6 MG TAB PO PRN (10:35)
--- NOTE | 2020-06-23 11:48 | PDOC.HOSPP ---
- Subjective Encounter Date: 06/23/20 Encounter Time: 11:46 Subjective: No overnight events. Patient tolerating wound VAC well. Denies chest pain, shortness of breath, palpitations. Chart and medications reviewed. - Objective Vital Signs & Weight: Vital Signs (12 hours) Temp Pulse Resp BP BP Pulse Ox 06/23/20 08:00 98.0 F 64 20 108/73 93 L 06/23/20 03:07 98.1 F 65 16 111/74 98 Weight Admit Weight 254 lb 1.6 oz Weight 254 lb 1.6 oz I&O: 06/22/20 06/23/20 06/24/20 06:59 06:59 06:59 Intake Total 1470 Balance 1470 Result Diagrams: 06/23/20 07:12 06/23/20 07:12 Additional Labs: Accuchecks 06/23/20 06/22/20 04:44 16:20 POC Glucose 181 H 190 H Hospitalist ROS - Review of Systems Constitutional: denies: fever, chills, sweats Eyes: denies: vision change Respiratory: denies: cough, shortness of breath Cardiovascular: denies: chest pain, palpitations, orthopnea, light headedness Gastrointestinal: denies: nausea, vomiting, abdominal pain, hematochezia Genitourinary: denies: dysuria Skin: reports: rash, lesions Neurological: denies: weakness, numbness, incoordination, change in speech, confusion, seizures, other - Medication Medications: Active Medications Generic Name Dose Route Start Last Admin Trade Name Freq PRN Reason Stop Dose Admin Hydrocodone Bitart/Acetaminophen 1 tab 06/18/20 09:08 06/22/20 20:37 Hydrocodone/Acetaminophen 5/325 Mg Tablet PO 1 tab Q4H PRN Administration Mild-Moderate Pain (1-5) Enoxaparin Sodium 40 mg 06/22/20 21:00 06/22/20 20:36 Enoxaparin Sodium 40 Mg/0.4 Ml Syringe SC 40 mg 2100 LEATHA Administration Insulin Glargine 14 units/ 0.14 mls @ 0 mls/hr 06/22/20 09:00 06/23/20 08:45 Miscellaneous Medication SC 0.14 mls QAM LEATHA Administration As Directed Vancomycin HCl 1.5 gm/ Device 300 mls @ 200 mls/hr 06/22/20 19:00 06/23/20 03:00 IVPB 06/24/20 21:00 300 mls 0300,1100,1900 LEATHA Administration Insulin Human Lispro 0 units 06/19/20 08:18 06/23/20 05:03 Humalog 300 Units/3 Ml Vial SC 2 unit .MODERATE SLIDING SC PRN Administration Moderate Correctional Scale Insulin Human Lispro 0 units 06/19/20 08:18 06/22/20 20:36 Humalog 300 Units/3 Ml Vial SC 2 unit .BEDTIME SLIDING SC PRN Administration Bedtime Correctional Scale Morphine Sulfate 2 mg 06/18/20 13:50 06/21/20 10:12 Morphine 2 Mg/Ml Vial SLOW IVP 2 mg Q2H PRN Administration Mild-Moderate Pain (1-5) Morphine Sulfate 4 mg 06/18/20 13:50 06/22/20 11:14 Morphine 4 Mg/Ml Vial SLOW IVP 4 mg Q2H PRN Administration Moderate to Severe Pain (6-10) Sodium Chloride 10 ml 06/20/20 09:00 06/23/20 08:45 Flush - Normal Saline 10 Ml Syringe IVF 10 ml Q12HR LEATHA Administration - Exam General Appearance: NAD, awake alert Eye: anicteric sclera ENT: normocephalic atraumatic, no oropharyngeal lesions Neck: supple, symmetric, no JVD Heart: RRR, no murmur, no gallops, no rubs, normal peripheral pulses Respiratory: CTAB, no wheezes, no rales, no ronchi, normal chest expansion, no tachypnea, normal percussion Gastrointestinal: soft, non-tender, non-distended, normal bowel sounds, no palpable masses, no hepatomegaly, no splenomegaly, no bruit Extremities - other findings: No crepitus, bullae, necrosis to groin Skin - other findings: Wound VAC in place to groindraining serosanguineous Neurological: normal sensation to touch, no weakness, no focal deficits, no new deficit Musculoskeletal: normal tone, normal strength, no muscle wasting Psychiatric: normal affect, normal behavior, A&O x 3 Hosp A/P - Plan Sepsis without septic shockresolved VSS Blood cx NGTD, Wound cx show MRSA, no anearobes. Will deescalate to IV vancomycin only WBC down 13.4 to 7.1, LA 1.3, afebrile IV vancomycin Tolerating oral intake. Scrotal Abccess POD#5 s/p I&D suprapubic and scrotal abscess by Dr. Goodson POD#2 s/p repeat I&D suprapubic and scrotal abscess by Dr. Wallace Wound VAC placed yesterday afternoon. Surgical team following. We will set up outpatient wound VAC with case management. We will consult Dr. Woods of infectious disease to guide outpatient antibiotics, recommendations appreciated. Abdominal wall cellulitis Continue antibiotic regimen. Abdominal wall cellulitis improved with erythema and edema localized to suprapubic area. DMII, uncontrolled HA1C 14 Has not been taking home metformin and empaglaflozin. Tolerating oral intake. Blood sugars high in the 190s, will increase Lantus to 14 units and restart home metformin. Patient will need diabetes education and insulin education as well as follow-up with his primary care doctor for continued insulin management. Mod ISS AC/HS checks. Case discussed with attending physician, Dr. Yarbrough.
[2020-06-23] MEDS: Docusate 100 MG CAP PO PRN ×2 (12:04→20:27)
[2020-06-23] MEDS: metFORMIN 500 MG TAB PO SCH (17:56)
[2020-06-23] MEDS: Enoxaparin Sodium 40 MG/0.4 ML SYRINGE SC SCH (20:22)
[2020-06-23] MEDS: HYDROcodone/Acetaminophen 5/325 mg Tablet PO PRN (20:23)
[2020-06-24] MEDS: Vancomycin 1.5 GRAM/300 ML BAG 1.5 GM in Premix Bag 1 BAG IVPB SCH ×3 (03:34→18:00)
[2020-06-24] MEDS: HumaLOG 300 UNITS/3 ML VIAL SC PRN ×2 (05:10→12:06)
[2020-06-24 05:43] LABS: #Basophils 0.1 thou/uL (0.0-0.2); #Eosinphils 0.4 thou/uL (0.0-0.7); #Lymphocytes 2.2 thou/uL (1.20-3.40); #Monocytes 0.9 thou/uL (0.11-0.59); #Neutrophils 3.2 thou/uL (1.40-6.50); %Basophils 1.1 % (0.0-1.0); %Eosinophils 6.2 % (0.0-10.0); %Lymphocytes 32.5 % (21.0-51.0); %Neutrophils 47.2 % (42.0-75.0); Hemoglobin 12.4 g/dL (14.0-18.0); Mean Corpuscular HGB CONC 32.1 g/dL (32.0-36.0); Mean Corpuscular Volume 90.3 fL (78.0-98.0); Mean Platelet Volume 8.1 fL (7.4-10.4); Platelet Count 326 thou/uL (130-400); RBC Distribution Width 11.5 % (11.5-14.5); Red Blood Cell (RBC) Count 4.28 mill/uL (4.70-6.10); White Blood Cell (WBC) Count 6.8 thou/uL (4.8-10.8)
[2020-06-24 06:12] LABS: Anion Gap 14 mmol/L (10-20); BUN (Urea Nitrogen) 8 mg/dL (8.9-20.6); Calc. Creatinine Clearance 221 mL/min (70-130); Calcium 9.2 mg/dL (7.8-10.44); Carbon Dioxide 22 mmol/L (22-29); Chloride 106 mmol/L (98-107); Estimated GFR-MDRD Greater than 90; Glucose 175 mg/dL (70-105); Sodium 138 mmol/L (136-145)
[2020-06-24] MEDS: metFORMIN 500 MG TAB PO SCH ×2 (09:20→16:51)
[2020-06-24] MEDS: Insulin Glargine 14 UNITS in Pre-Filled Syringe 1 EACH SC SCH (09:21)
[2020-06-24] MEDS: Docusate 100 MG CAP PO PRN (09:23)
[2020-06-24] MEDS: Morphine 4 MG/ML VIAL SLOW IVP PRN (09:48)
[2020-06-24] MEDS: HYDROcodone/Acetaminophen 5/325 mg Tablet PO PRN (12:06)
[2020-06-24 16:29] VITALS: TEMP 98.1
--- NOTE | 2020-06-24 19:04 | CON ---
DATE OF CONSULTATION: 06/24/2020 REASON FOR CONSULTATION: Suprapubic abscess. HISTORY OF PRESENT ILLNESS: A 44-year-old patient with history of type-2 diabetes with new-onset of inflammatory process around the suprapubic area, dorsum of the penis and scrotum for the week before admission. I did not notice any abscess in the skin, no areas of folliculitis, and has not had any other sites with skin abscesses before noted. Did not have any reported fever or chills nor dysuria, although he did have some penile discharge. In the emergency room, the patient had a pelvis CT, which demonstrated inflammatory changes around the penis extending into the bilateral hydroceles and some confluence towards the skin surface of suprapubic area with a phlegmon. No soft tissue area was noted. Some prominent inguinal lymph nodes noted. The patient had surgical intervention on June [address] Goodson and it consisted of an I and D of a large suprapubic abscess. Wound was packed. The second small abscess below the umbilicus was opened, did not have any purulence. There was no connection with primary one. A 2nd intervention on June 21 was carried out, basically consisted of incision and drainage of left upper pubis abscess, which extended inferolaterally, and a drainage of another supra-penile abscess extending cephalad. Cultures have yielded MRSA, the customary susceptibilities including clindamycin. Blood cultures 2 sets, no growth in 5 days. Currently, the patient is with [id number] pain. He is ambulatory. Denies any headaches. No visual symptoms, sore throat, odynophagia, or dysphagia. No chest pain. No shortness of breath. No abdominal pain outside the area of involvement. He is voiding in the toilet. No neurological symptoms. No diarrhea. PAST MEDICAL HISTORY: 1. Type-2 diabetes. 2. Obesity. PAST SURGICAL HISTORY: Cholecystectomy. SOCIAL HISTORY: There is a history of methamphetamine use, but no smoking history. ALLERGIES: NONE. MEDICATIONS: Have been taking metformin. Currently, on vancomycin in addition to his regular medications plus p.r.n. medications. FAMILY HISTORY: Noncontributory. PHYSICAL EXAMINATION: VITAL SIGNS: He has been afebrile through the hospital stay. The T-max was 99.7 x1. BP 140/85, heart rate 59, respiratory rate 16, O2 saturation 99% on room air. SKIN: Suprapubic areas of abscess, I and D sites with negative pressure dressing. Peripheral IV access. Does not have Chandler catheter. The swelling is less. The tissues around the drainage sites are supple with mild tenderness. No lymphadenopathy. HEENT: Ocular movements conjugate. Oral cavity with quite a few missing teeth and some periodontitis. NECK: Supple with jugular venous distention. No carotid bruits. LUNGS: Symmetric. Clear breath sounds. No wheezing. HEART: S1, S2. Regular rate without murmurs. No S3 or S4. ABDOMEN: Soft. Not distended or tender outside the suprapubic area. No organomegaly or ascites. EXTREMITIES: No joint inflammatory activity. No edema. Pulses 1+ in dorsalis pedis. Moves all extremities equally. NEUROLOGIC: He is awake, oriented, follows commands. Speech is normal. Does not appear in very good mood right now and obviously not very happy with his situation. LABORATORY DATA: His white cell count is down from 16 to 6.8, hemoglobin is little bit down to 12.4, platelets 326. Differential has improved as well. Chemistry with a creatinine 0.68, and his liver profile was normal. Albumin was 3.5. Hemoglobin A1c was greater than 14. Urinalysis was unremarkable except for glycosuria. Toxicology; vancomycin trough peaked at 18.6 recently. SARS-CoV not detected. MRSA from the abscess culture. ASSESSMENT: Type-2 diabetes; obesity; prior methamphetamine use, but not current; abscess in suprapubic area with MRSA identified. He had another separate abscess, smaller, more like a phlegmon in the periumbilical region. DISCUSSION: The patient probably has self-inoculated in those areas, may have had a little area of folliculitis, which turned into this inflammatory process. After proper surgical debridement, then eventually be eligible for discharge planning on oral clindamycin for approximately 10 days 300 mg four times daily. An alternate combination would be doxycycline or Vibramycin plus rifampin for 10 days as well. The patient has not been shown to be bacteremic, so no extended therapy will be required. He may develop recurrence of those cutaneous abscesses in the future and he may be eligible for decolonization regimen then. Job ID: [id number]
[2020-06-24 19:28] VITALS: BP 146/96
--- NOTE | 2020-06-25 23:50 | DIS ---
DATE OF ADMISSION: 06/18/2020 DATE OF DISCHARGE: 06/24/2020 CONSULTANTS: 1. Dr. Goodson of General Surgery. 2. Dr. Wallace of General Surgery. 3. Dr. Ring of Infectious Disease. MEDICATIONS RECONCILED AT DISCHARGE: New medications include: 1. Clindamycin 300 mg p.o. q. 6 hours for 10 days. 2. Metformin 1000 mg p.o. b.i.d. 3. Lantus 14 units subcutaneously q.a.m. FINAL DIAGNOSES: 1. Methicillin-resistant Staphylococcus aureus, suprapubic abscess. 2. Type 2 diabetes. 3. Abdominal wall cellulitis. 4. Sepsis without septic shock, which has resolved. HISTORY OF PRESENT ILLNESS: Mr. Nuñez is a 44-year-old male patient with a history of diabetes mellitus, not on insulin, on metformin; however, noncompliant, who presents with a 5-to-7 day history of scrotal swelling. Pain initially started on the left side and then migrated to the right side. A few days later, he noticed significant swelling and reddening of the scrotum, extending up to his lower abdomen. He denied any associated fevers, dysuria; however, he does admit to scrotal and penile discharge. In the emergency room, he was assessed to have a scrotal abscess and had a CT scan of his lower abdomen and pelvis to evaluate for Arnel gangrene. CT scan was positive for cellulitis involving the scrotum and lower abdominal wall and General Surgery team was consulted. Hospitalist team was consulted for admission. HOSPITAL COURSE: This is a 44-year-old male patient with a history of type 2 diabetes mellitus, on metformin; however, noncompliant, who presented with scrotal swelling, found to have scrotal abscess, cellulitis, abdominal wall cellulitis. The patient was started on antibiotics, vancomycin, Zosyn, clindamycin. Wound cultures and blood cultures were drawn. The patient's vital signs remained stable. White blood cell count was elevated at 16.3. The patient was afebrile. 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 On 06/18/2020, the patient was taken to the OR by Dr. Goodson, who performed a suprapubic abscess incision and drainage. Blood loss was minimal, and there were no major complications. The patient continued on IV antibiotics; however, a second area of fluctuance was noted, and on the , the patient was taken back to the OR by Dr. Wallace for an incision and drainage of the left upper pubic abscess, which was previously been drained and extended inferolateral. He also performed a drainage of another suprapenile abscess extending cephalad, an extension of the previously drained abscess opening, midline pubis extending to the right of midline. The patient tolerated this procedure well. Blood cultures grew no growth in 5 days. Wound cultures were positive for MRSA, sensitive to vancomycin. Anaerobic cultures showed no growth. The patient's clinical status improved, and his white blood cell count downtrended to 6.8. The patient was evaluated by wound care team and wound VAC was placed to the scrotum. Dr. Ring of Infectious Disease was consulted for antibiotic guidance, who recommended that the patient be discharged on clindamycin 300 mg 4 times daily for 10 days and to follow up with his primary care provider. The patient was seen and examined on the day of discharge and determined to be stable. The patient was started on injectable subcutaneous long-acting insulin, Lantus due to high blood glucose levels. Initially, the patient's blood glucose trends in the 300s and after initiating Lantus and uptitrating to 14 units, the patient's blood sugars were in the range of 150s to 170s during the day. The patient was continued on Lantus 14 units subcutaneously and metformin 1000 mg b.i.d. on discharge. PHYSICAL EXAMINATION: VITAL SIGNS: On the day of discharge were 98.1, 102, 18, 98%, 146/96. GENERAL: No acute distress. Awake and alert. HEENT: Anicteric sclerae. Normocephalic, atraumatic. No oropharyngeal lesions. NECK: Supple, symmetric. No JVD. HEART: Regular rate and rhythm. No murmurs, rubs, or gallops. Normal peripheral pulses. LUNGS: Clear to auscultation bilaterally. No wheezes, rales, or rhonchi. ABDOMEN: Soft, nontender, and nondistended with normoactive bowel sounds. No palpable masses. No hepatosplenomegaly. No crepitus, bullae, or necrosis was noted to the groin. Wound VAC in place, draining serosanguinous fluid. NEUROLOGIC: The patient had normal sensation to touch. No weakness. No focal deficits. No new deficits. Muscle tone normal. Normal affect. Normal behavior. Alert and oriented x3. LABORATORY DATA: Jaffe findings and lab results: CBC 16.3, hemoglobin 13.0, hematocrit 38.1, platelets 267. On the day of discharge white blood cell count 6.8, hemoglobin 12.4, hematocrit 38.7, platelets 326. : Sodium 138, potassium 4.1, chloride 105, carbon dioxide 25, anion gap 12, BUN 7, creatinine 0.67, glucose 155. SARS-CoV-2 negative. Chlamydia negative. Gonorrhea negative. UA negative. CT of the pelvis showed: 1. Severe edema which could be cellulitis, anterior to the base of the penis and in the surrounding anterior superficial soft tissues. 2. Moderately large phlegmon versus hematoma, anterior to the base of the penis and smaller phelgmon versus hematoma, adjacent to the left inguinal lymphadenopathy, scrotal edema and hydroceles. DISCHARGE DISPOSITION: To home with home health and Wound Care Services for wound VAC. FOLLOWUP: The patient will follow up with primary care provider in 7 days. He will also followup with Dr. Goodson of General Surgery in 2 to [address] Ring of Infectious Disease as needed. The patient demonstrates understanding and is in agreement with plan. The patient was also evaluated on the day of discharge by Dr. Yarbrough, attending physician, who is in agreement with the assessment and plan. Time spent in discharge planning greater than 30 minutes. Job ID: [id number] [facility]
== END 2020-06-24 19:22 | disposition home or self-care (01) | DRG 853 ==
LOC: ERS 02:43 → T4-A 04:31
PROVIDERS: ADMIT Internal Medicine; ATTEND Internal Medicine
PROC: 0V950ZZ Drainage of Scrotum, Open Approach (ICD-10-PCS; principal; 2020-06-21)
PROC: 0V9S0ZZ Drainage of Penis, Open Approach (ICD-10-PCS; 2020-06-21)
PROC: 0HBAXZZ Excision of Inguinal Skin, External Approach (ICD-10-PCS; 2020-06-21)
DX: A41.51 Sepsis due to Escherichia coli [E. coli] (principal); J96.01 Acute respiratory failure with hypoxia; L03.311 Cellulitis of abdominal wall; E11.65 Type 2 diabetes mellitus with hyperglycemia; N49.2 Inflammatory disorders of scrotum; E66.01 Morbid (severe) obesity due to excess calories; Z90.49 Acquired absence of other specified parts of digestive tract; Z79.84 Long term (current) use of oral hypoglycemic drugs; Z68.31 Body mass index [BMI] 31.0-31.9, adult; Z20.828 Contact with and (suspected) exposure to other viral communicable diseases
CPT/HCPCS: 36415; 36416; 72192; 80048; 80053; 80061; 80202; 81003; 82565; 83036; 83605; 83735; 85025; 87040; 87070; 87077; 87186; 87205; 87491; 87591; 87635; 96365; 96367; 96375; J1650; J1815; J1885; J2270; J2405; J2543; J2704; J2765; J3010; J3370; J3475; J3480; J3490; J7030; J7050; S0020; U0003

== ENCOUNTER 2020-06-29 06:29 | Emergency (ER) | payer SELFPAY | END 2020-06-29 06:53 | disposition home or self-care (01) | LOC: ERS 06:29 | DX: Z02.89 Encounter for other administrative examinations (principal); E11.9 Type 2 diabetes mellitus without complications | CPT/HCPCS: 99283 ==

== ENCOUNTER 2022-04-04 20:18 | Emergency (ER) | payer MEDICAID, SELFPAY ==
[2022-04-04] MEDS ORDERED: Lidocaine 1% PF 5 ML VIAL ONE (22:34)
== END 2022-04-04 23:24 | disposition home or self-care (01) ==
LOC: ERS 20:18
DX: L02.415 Cutaneous abscess of right lower limb (principal); E11.9 Type 2 diabetes mellitus without complications; I10 Essential (primary) hypertension; E78.00 Pure hypercholesterolemia, unspecified; F17.220 Nicotine dependence, chewing tobacco, uncomplicated; Z79.4 Long term (current) use of insulin
CPT/HCPCS: 99283